=== PATIENT | female | born 1995 | race Hispanic/Latino ===

== ENCOUNTER 2024-06-25 11:09 | Emergency (ER) | payer BC, MEDICAID ==
[~2024-06-25] VITALS: Ht 170.2 cm; Wt 66.2 kg
--- NOTE | 2024-06-25 11:41 | ERN ---
General Chief Complaint: Headache Stated Complaint: HEADACHES; Time Seen by MD: 11:10 Time Seen by Midlevel: 11:10 Source: patient History of Present Illness Initial Comments 28-year-old female who presents to the emergency department due to a headache onset this morning. Patient reports she had episode of blurred vision lasting approximately 10 minutes with dizziness. States she is currently 10 weeks , A0. Denies any vomiting, fever, LOC, or further associated symptoms. Denies any significant past medical history. Allergies: Coded Allergies: No Known Allergies (Unverified Allergy, Unknown, 06/25/24) Past Medical History Past Medical History: No Pertinent History Past Surgical History: None Female( History) LMP: May 12, 2024 : 2 Para: 1 Aborts: 0 ROS Dictation Constitutional: Negative for fever,chills, and weight loss Eyes: Positive for transient blurry vision. Negative for injury, pain,redness, and discharge ENT: Negative for injury,pain or swelling Cardiovascular: Negative for chest pain, palpitations, and edema Respiratory: Negative for shortness of breath, cough, and wheezing, Abdomen/GI: Negative for abdominal pain, nausea, vomiting, diarrhea, and constipation Back: Negative for injury and pain : Negative for painful urination, bleeding or discharge MS/Extremity: Negative for injury and deformity Skin: Negative for rash, and discoloration Neuro: Positive for headache. Negative for weakness, numbness, tingling, and seizure Psych: Negative for suicide ideation, homicidal ideation, and hallucinations Physical Exam Physical Exam Dictation General: awake, alert, no acute distress Head/Face: Normocephalic, atraumatic Eyes: PERRL, EOMI, normal conjunctiva ENT: oral cavity clear, oral mucosa moist Neck: Supple, normal range of motion Cardiovascular: RRR, normal S1/S2 Respiratory: CTAB, no respiratory distress, no rales or wheezes Abdomen: Soft, non-tender, non-distended, no guarding or rebound. Skin: Warm, dry, normal turgor, no rash MS/Extremity: Pulses equal, no cyanosis, neurovascular intact, FROM Neuro: COAx4, GCS 15, strength 5/5, CN 2-12 intact, normal cerebellar exam, normal gait Psych: Normal behavior, mood, and affect normal Results Laboratory and Microbiology Lab and Micro Result Laboratory Tests Test 06/25/24 11:33 06/25/24 11:34 White Blood Count 7.4 K/uL (4.8-10.8) Red Blood Count 4.24 MIL/uL (4.00-5.50) Hemoglobin 10.7 g/dL (12.0-16.0) L Hematocrit 33.3 % (36-48) L Mean Corpuscular Volume 78.5 fL (79-99) L Mean Corpuscular Hemoglobin 25.2 pg (27.0-33.0) L Mean Corpuscular Hemoglobin Concent 32.1 g/dL (32.0-36.0) Red Cell Distribution Width 17.3 % (11.0-15.5) H Platelet Count 248 K/uL (130-400) Mean Platelet Volume 10.3 fL (7.5-10.5) Immature Granulocyte % (Auto) 0.4 % (0-1) Neutrophils (%) (Auto) 73.8 % (40.0-77.0) Lymphocytes (%) (Auto) 19.9 % (21.0-51.0) L Monocytes (%) (Auto) 5.1 % (3.0-13.0) Eosinophils (%) (Auto) 0.7 % (0.0-8.0) Basophils (%) (Auto) 0.1 % (0.0-5.0) Neutrophils # (Auto) 5.5 K/uL (1.8-7.7) Lymphocytes # (Auto) 1.5 K/uL (1.0-4.8) Monocytes # (Auto) 0.4 K/uL (0.1-1.0) Eosinophils # (Auto) 0.05 K/uL (0.00-0.70) Basophils # (Auto) 0.01 K/uL (0.00-0.20) Absolute Immature Granulocyte (auto 0.03 K/uL (0-1) Nucleated Red Blood Cells 0.0 % (0.0-0.19) Sodium Level 133 mmol/L (136-145) L Potassium Level 3.8 mmol/L (3.5-5.1) Chloride Level 98 mmol/L (101-111) L Carbon Dioxide Level 27 mmol/L (21-32) Blood Urea Nitrogen 10 mg/dL (7-18) Creatinine 0.6 mg/dL (0.5-1.0) Glomerular Filtration Rate Calc 127 mL/min (>90) Random Glucose 74 mg/dL (70-105) Total Calcium 8.6 mg/dL (8.5-10.1) Total Bilirubin 0.2 mg/dL (0.2-1.0) Direct Bilirubin 0.1 mg/dL (0.0-0.3) Aspartate Amino Transf (AST/SGOT) 15 U/L (10-37) Alanine Aminotransferase (ALT/SGPT) 13 U/L (12-78) Alkaline Phosphatase 45 U/L (50-136) L Total Protein 7.2 g/dL (6.0-8.3) Albumin 3.6 g/dL (3.5-5.0) Human Chorionic Gonadotropin, Quant 577065 mIU/mL (0-5) H Urine Color COLORLESS (YELLOW) Urine Appearance CLEAR (CLEAR) Urine pH 6.5 (5.0-8.0) Urine Specific [place] 1.004 (1.001-1.031) Urine Protein NEGATIVE mg/dL (NEGATIVE) Urine Glucose (UA) NEGATIVE mg/dL (NEGATIVE) Urine Ketones NEGATIVE mg/dL (NEGATIVE) Urine Occult Blood NEGATIVE (NEGATIVE) Urine Nitrate NEGATIVE (NEGATIVE) Urine Bilirubin NEGATIVE mg/dL (NEGATIVE) Urine Urobilinogen 0.2 mg/dL (0.2-1.0) Urine Leukocyte Esterase NEGATIVE Kayleen/uL Urine RBC 0-1 /HPF (0-1) Urine WBC 0-1 /HPF (0-1) Urine Squamous Epithelial Cells FEW /HPF (0-2) Urine Bacteria RARE /HPF (None Seen) Labs Reviewed?: Yes MDM MDM: Differential diagnosis: Preeclampsia, dehydration, electrolyte imbalance, migraine Rationale:28-year-old female who presents to the emergency department due to a headache onset this morning. Patient reports she had episode of blurred vision lasting approximately 10 minutes with dizziness. States she is currently 10 weeks , A0. Denies any vomiting, fever, LOC, or further associated symptoms. Denies any significant past medical history. Per physical examination patient is in no acute distress, nonlabored breathing, abdomen is soft nontender, neurologically intact. Labs obtained indicate anemia with hemoglobin of 10.7. UA negative for urinary tract infection. HCG of [id number]. Patient received IV fluids and acetaminophen in the ED. Case discussed with [facility] Dr. Huizar, who recommended patient remain hydrated and take Tylenol [id number] as needed. Follow up outpatient with OBGYN. Patient was yasir yang on findings and diagnosis. Advised to follow up with PCP. Return to the emergency department if any worsening symptoms. Patient verbalized understanding. Patient is stable for discharge. There are no social concerns with this patient. I independently interpreted the test that were performed, results were reviewed by me and considered findings on radiology if ordered. Medical management and examination interpretation discussions were had by me with other qualified healthcare professionals as indicated for the patient's care. ED Course Orders Procedure Category Date Status Time Cbc With Differential LAB 06/25/24 Complete 11:11 Urinalysis LAB 06/25/24 Complete W/Microscopic 11:11 Acetaminophen 500mg PHA 06/25/24 Complete Tab (Tylenol 500mg T 11:30 Hepatic Function Panel LAB 06/25/24 Complete 11:20 Hcg,Quantitative LAB 06/25/24 Complete 11:20 Basic Metabolic Panel LAB 06/25/24 Complete 11:20 0.9%Nacl 1000ml (Ns PHA 06/25/24 Complete 1000ml) 12:00 Current Medications Medications (Trade) Dose Ordered Sig/Mario Route PRN Reason Start Time Stop Time Status Last Admin Dose Admin Acetaminophen (TYLenol 500MG TAB) 1,000 mg ONCE ONCE PO 06/25/24 11:30 06/25/24 11:31 DC 06/25/24 13:44 Sodium Chloride 1,000 ml @ 0 mls/hr ONCE ONCE IV 06/25/24 12:00 06/25/24 12:01 DC 06/25/24 13:44 Vital Signs Date Time Temp Pulse Resp B/P (MAP) Pulse Ox O2 Delivery O2 Flow Rate FiO2 06/25/24 14:21 97.5 71 16 116/65 98 Room Air* 0 21 06/25/24 13:45 97.5 71 16 112/61 98 Room Air* 0 21 06/25/24 11:15 97.9 62 20 110/65 98 Room Air DX & DISP Disposition: Discharge Departure Impression: Primary Impression: Headache in Condition: Stable Additional Instructions: Discharge home. Rest. Follow up with primary care in 24 hours. Return to the ER for any acute changes or worsening symptoms. If any medications were prescribed take as directed. Okay to continue home medications unless otherwise discussed during your visit in the emergency room today. Patient was also advised to follow-up with primary care physician in 1 to 2 days for continued monitoring. Referrals: SELF,REFERRAL (PCP) I performed the substantive portion of the visit. I have reviewed and personally made and approve the management plan that is documented in the notes by myself or the PAUL. I acknowledge full responsibility for the patient's management plan. ELLIS ACEVEDO Jun 25, 2024 11:41
[2024-06-25 11:42] LABS: BASOPHILS # (AUTO) 0.01 K/uL (0.00-0.20); BASOPHILS % (AUTO) 0.1 % (0.0-5.0); EOSINOPHILS # (AUTO) 0.05 K/uL (0.00-0.70); EOSINOPHILS % (AUTO) 0.7 % (0.0-8.0); HEMATOCRIT 33.3 % (36-48); IMMATURE GRANULOCYTE ABSOLUTE 0.03 K/uL (0-1); LYMPHOCYTES # (AUTO) 1.5 K/uL (1.0-4.8); LYMPHOCYTES % (AUTO) 19.9 % (21.0-51.0); MEAN CORPUSCULAR HEMOGLOBIN 25.2 pg (27.0-33.0); MEAN CORPUSCULAR HGB CONC 32.1 g/dL (32.0-36.0); MEAN CORPUSCULAR VOLUME 78.5 fL (79-99); MONOCYTES # (AUTO) 0.4 K/uL (0.1-1.0); MONOCYTES % (AUTO) 5.1 % (3.0-13.0); NEUTROPHILS # (AUTO) 5.5 K/uL (1.8-7.7); NEUTROPHILS % (AUTO) 73.8 % (40.0-77.0); PLATELET COUNT (AUTO) 248 K/uL (130-400); RED BLOOD CELL COUNT(AUTO) 4.24 MIL/uL (4.00-5.50); RED CELL DISTRIBUTION WIDTH 17.3 % (11.0-15.5); WHITE BLOOD COUNT (AUTO) 7.4 K/uL (4.8-10.8)
[2024-06-25 11:47] LABS: APPEARANCE,URINE CLEAR (CLEAR); BILIRUBIN,URINE NEGATIVE (NEGATIVE); COLOR,URINE COLORLESS (YELLOW); GLUCOSE, URINE (UA) NEGATIVE (NEGATIVE); KETONES,URINE NEGATIVE (NEGATIVE); LEUKOCYTE ESTERASE ,URINE NEGATIVE Leu/uL (NEGATIVE); NITRATE,URINE NEGATIVE (NEGATIVE); OCCULT BLOOD,URINE NEGATIVE (NEGATIVE); PH,URINE 6.5 (5.0-8.0); PROTEIN,URINE NEGATIVE (NEGATIVE); UROBILINOGEN,URINE 0.2 mg/dL (0.2-1.0)
[2024-06-25 11:51] LABS: BACTERIA,URINE RARE /HPF (None Seen); RBC,URINE 0-1 /HPF (0-1); SQUAMOUS EPITHELIAL CELL,UR FEW /HPF (0-2); WBC,URINE 0-1 /HPF (0-1)
[2024-06-25 11:56] LABS: CREATININE 0.6 mg/dL (0.5-1.0); POTASSIUM 3.8 mmol/L (3.5-5.1)
[2024-06-25 12:25] LABS: ALBUMIN 3.6 g/dL (3.5-5.0); BILIRUBIN,DIRECT 0.1 mg/dL (0.0-0.3); BILIRUBIN,TOTAL 0.2 mg/dL (0.2-1.0); TOTAL PROTEIN, SERUM 7.2 g/dL (6.0-8.3)
[2024-06-25] MEDS: acetaMINOPHEN 500 MG TABLET PO ONE (13:44)
[2024-06-25] MEDS: 0.9%NACL 1000ML 1,000 ML IV ONE (13:44)
[2024-06-25 14:21] VITALS: BP 116/65; PULSE 71; RESP 16; TEMP 97.5; O2SAT 98
== END 2024-06-25 14:22 | disposition home or self-care (01) ==
LOC: EDH 11:09 → EDBD 11:09 → EDH 14:22
DX: O26.891 Other specified pregnancy related conditions, first trimester (principal); R51.9 Headache, unspecified; Z3A.10 10 weeks gestation of pregnancy; R10.2 Pelvic and perineal pain
CPT/HCPCS: 99283; 96360; 80076; 80048; 84702; 85025; 81001; 36415; J7030